=== PATIENT | male | born 1980 | race Caucasian/White ===

== ENCOUNTER 2024-12-28 10:22 | Emergency (ER) | payer SELFPAY ==
[2024-12-28 10:30] VITALS: BP 129/95; PULSE 78; O2SAT 98
[2024-12-28 10:33] VITALS: BP 134/91; PULSE 84; RESP 19; TEMP 36.8; O2SAT 96; BMI 27.1
--- NOTE | 2024-12-28 10:33 | CT_ITS ---
PROCEDURE INFORMATION: Exam: CT Abdomen And Pelvis With Contrast Exam date and time: 12/28/2024 10:58 AM Age: 44 years old Clinical indication: Constipation; Abdominal pain; Other: Llq; Additional info: Llq abdominal pain, constipation TECHNIQUE: Imaging protocol: Computed tomography of the abdomen and pelvis with contrast. Radiation optimization: All CT scans at this facility use at least one of these dose optimization techniques: automated exposure control; mA and/or kV adjustment per patient size (includes targeted exams where dose is matched to clinical indication); or iterative reconstruction. Contrast material: ISOVUE; Contrast volume: 75 ml; Contrast route: IV; COMPARISON: No relevant prior studies available. FINDINGS: Liver: Normal. No mass. Gallbladder and biliary ducts: Normal. No calcified stones. No ductal dilation. Pancreas: Normal. No ductal dilation. Spleen: Normal. No splenomegaly. Adrenal glands: Normal. No mass. Kidneys and ureters: Normal. No hydronephrosis. Stomach and bowel: Moderate diverticulosis with surrounding fat stranding and wall thickening involving the descending colon likely represents acute diverticulitis. No evidence of perforation or abscess. Appendix: No evidence of appendicitis. Intraperitoneal space: No evidence of free air in the abdomen. Vasculature: Unremarkable. No abdominal aortic aneurysm. Lymph nodes: Unremarkable. No enlarged lymph nodes. Urinary bladder: The urinary bladder is underdistended. Reproductive: Unremarkable as visualized. Bones/joints: Unremarkable. No acute fracture. Soft tissues: Unremarkable. IMPRESSION: Moderate diverticulosis with surrounding fat stranding and wall thickening involving the descending colon likely represents acute diverticulitis. No evidence of perforation or abscess. A colonoscopy is recommended to exclude malignancy after the acute episode has subsided.
--- NOTE | 2024-12-28 10:35 | ED_ITS ---
Discharge Plan Disposition Patient Disposition: Home, Self-Care Prescriptions Prescriptions: New amoxicillin-pot clavulanate 875-125 mg tablet 1 tab PO BID 5 Days Qty: 10 0RF Referrals Follow up/Referrals: Provider,Subhash Hire [Referring, Medical] - See instructions Activity Restrictions/Add. Instructions Additional Instructions/Restrictions: You were found to have diverticulitis. I am encouraging you to take MiraLAX to help soften your stools as well to drink plenty of fluids to help avoid constipation. You can take Tylenol and ibuprofen to help with pain. You are being prescribed a short course of Augmentin to help treat your diverticulitis. If you develop any new or worsening symptoms, or if you become concerned for your health for any reason, return to the emergency department for evaluation. Clinical Impressions Clinical Impression: Diverticulitis Instructions Patient Instructions: DI for Acute Abdominal Pain Print Language Print Language: Georgian Discharge ED Provider: Sundeep Freedman General Adult HPI General Chief complaint: Abdominal Pain Stated complaint: flu like symptoms ,abdomanl pain left sd Time Seen by Provider: 12/28/24 10:26 History of Present Illness HPI narrative: Robert Torres is a 44y male with no known past medical history who presents to the emergency department for complaints of subjective fevers and left lower quadrant abdominal pain. Patient states over the last 4 days, he has had subjective fevers that seem to worsen yesterday. Starting yesterday, while sitting at work, he developed dull, constant left lower quadrant abdominal pain. He does state that he has not had a bowel movement in 2 days, which is abnormal for him. He denies any diarrhea or bloody stools. He denies any dysuria, hematuria, penile discharge. He states that the pain is located in his left lower quadrant and radiates over to his periumbilical area. He denies any history of abdominal surgeries. He denies any nausea, vomiting, chest pain or shortness of breath. He took Advil last night but states that the pain kept him from sleeping well. Related Data Previous Rx's ?Medication ?Instructions ?Recorded amoxicillin 875 mg-potassium 1 tab PO BID 5 days #10 t abs 12/28/24 clavulanate 125 mg tablet Allergies Allergy/AdvReac Type Severity Reaction Status Date / Time No Known Allergies Allergy Verified 12/28/24 10:38 [facility] Disclaimer: The information contained in this section may have been updated after the patient was seen, as this information can be updated by other users. Social History Smoking Status: Current every day smoker alcohol intake: current current occupational status: employed Travel in the last 8 weeks?: None ROS Obtained: Yes Systems reviewed as appropriate & no additional complaints except as documented Physical Exam General General appearance: alert and in no apparent distress Head Head exam: atraumatic Eye Eye exam: Present normal appearance ENT ENT exam: Present normal external ear exam Neck Neck exam: Present full ROM Chest Chest inspection: Present symmetric chest wall rise Respiratory Respiratory exam: Present normal lung sounds bilaterally; Absent respiratory distress, wheezes or stridor Cardiovascular Cardiovascular exam: Present regular rate and normal rhythm Abdominal Exam Abdominal exam: Present soft and tenderness (LLQ); Absent distention or guarding exam: Present deferred Extremities Exam Extremities exam: Present normal inspection Back Exam Back exam: Present normal inspection Neurological Exam Neurological exam: Present alert and oriented X3 Psychiatric Psychiatric exam: Present normal affect Skin Skin exam: Present warm and dry Medical Decision Making Medical Records Screening: Per USPSTF and CDC recommendations, given the prevalence of disease in our region, it is our hospital?s policy to screen for HIV and viral Hepatitis for all patients aged 18 and over and those with ongoing risk factors. Higinio Inquiry Pt receiving controlled substance: No Vital Signs: 12/28/24 10:30 12/28/24 10:33 12/28/24 11:01 Temperature 98.3 F Temperature Source Oral Pulse Rate 78 77 Pulse Rate [Left] 84 Respiratory Rate 19 Blood Pressure 129/95 H 132/82 Blood Pressure [Right Arm] 134/91 H Blood Pressure Mean 104 Blood Pressure Mean [Right Arm] 105 Blood Pressure Source [Right Arm] Automatic Cuff Blood Pressure Position [Right Arm] Sitting 02 Sat by Pulse Oximetry 98 96 98 Oxygen Delivery Method Room Air Room Air 12/28/24 11:30 12/28/24 12:01 Temperature Temperature Source Pulse Rate 69 73 Pulse Rate [Left] Respiratory Rate 17 Blood Pressure 117/73 107/60 L Blood Pressure [Right Arm] Blood Pressure Mean 87 Blood Pressure Mean [Right Arm] Blood Pressure Source [Right Arm] Blood Pressure Position [Right Arm] 02 Sat by Pulse Oximetry 97 95 Oxygen Delivery Method Room Air Lab Data Lab Results 12/28/24 10:38: WBC 10.5, RBC 4.79, Hgb 14.9, Hct 41.9 L, MCV 87.5, MCH 31.1, M CHC 35.6 H, RDW 11.9, Plt Count 182, MPV 11.4 H, Neut % (Auto) 77.6, Lymph % (Auto) 9.6 L, [place] % (Auto) 11.8 H, Eos % (Auto) 0.7, Baso % (Auto) 0.1, Neut # (Auto) 8.1 H, Lymph # (Auto) 1.0, [place] # (Auto) 1.2 H, Eos # (Auto) 0.1, Baso # (Auto) 0.0, Sodium 139, Potassium 4.1, Chloride 106, Carbon Dioxide 24, Anion Gap 13.1, BUN 16, Creatinine 0.90, Estimated Creat Clear 128, Estimated GFR 91, Est GFR ( Amer) 110, Glucose 120 H, Calcium 9.3, Total Bilirubin 1.4 H, AST 30, ALT 27, Alkaline Phosphatase 96, Total Protein 7.9, Albumin 4.7, Globulin 3.2, Albumin/Globulin Ratio 1.5, Lipase 40, Urine Color Yellow, Urine Appearance Clear, Urine pH 6.0, Ur Specific [place] 1.025, Urine Protein Negative, Urine Glucose (UA) Negative, Urine Ketones Negative, Urine Blood Negative, Urine Nitrate Negative, Urine Bilirubin Negative, Urine Urobilinogen 0.2, Ur Leukocyte Esterase Negative, Urine RBC None, Urine WBC None, Urine Mucus 1+ 12/28/24 10:38 12/28/24 10:38 Orders (Tests/Meds): ED MEDICATIONS Discontinued Medications Generic Name Dose Route Start Last Admin Trade Name Jefry PRN Reason Stop Dose Admin Iopamidol 75 ml 12/28/24 10:55 12/28/24 10:57 Iopamidol-370 (76%);100ml Bottle IV 12/28/24 10:56 75 ml ONCE ONE Administration Ketorolac Tromethamine 15 mg 12/28/24 10:33 12/28/24 10:46 Ketorolac 15mg/Ml Vial IV 12/28/24 10:34 15 mg ONCE ONE Administration Sodium Chloride 10 ml 12/28/24 10:55 12/28/24 10:57 Sodium Chloride 0.9% 10ml Syr (Rad Only) IV 12/28/24 10:56 10 ml ONCE ONE Administration ORDERS Category Date Time Status CT abdomen pelvis w con Stat Cat Scan 12/28/24 10:33 Completed CBC w/Auto Diff [Complete Blood Count Auto Diff] Stat Lab 12/28/24 10:38 Completed CMP [Comprehensive Metabolic Panel] Stat Lab 12/28/24 10:38 Completed Lipase Stat Lab 12/28/24 10:38 Completed UA [Urinalysis and Microscopic] Stat Lab 12/28/24 10:38 Completed Medical Decision Narrative: Robert Torres is a 44y male with no known past medical history who presents to the emergency department for complaints of subjective fevers and left lower quadrant abdominal pain. Patient states over the last 4 days, he has had subjective fevers that seem to worsen yesterday. Starting yesterday, while sitting at work, he developed dull, constant left lower quadrant abdominal pain. He does state that he has not had a bowel movement in 2 days, which is abnormal for him. He denies any diarrhea or bloody stools. He denies any dysuria, hematuria, penile discharge. He states that the pain is located in his left lower quadrant and radiates over to his periumbilical area. He denies any history of abdominal surgeries. He denies any nausea, vomiting, chest pain or shortness of breath. He took Advil last night but states that the pain kept him from sleeping well. He denies any testicular pain or swelling. On arrival, patient is normotensive, afebrile, maintaining appropriate oxygen saturation on room air. Physical exam, as stated above, revealed an overall well-appearing male in no distress. GCS 15. He has localized tenderness in the left lower quadrant without guarding or rebound. Cardiopulmonary exam is unremarkable. No peritonitis on abdominal exam. Differential diagnosis includes, but is not limited to: Diverticulitis, constipation, small bowel obstruction, appendicitis, urinary tract infection, ureterolithiasis, among others. The most morbid conditions were considered and workup was based on these. Workup in the emergency department includes: CT abdomen pelvis with IV contrast, CBC, CMP, lipase, urinalysis. Patient was treated with 15 mg IV Toradol. He denies any nausea at this time. Lab work showed no leukocytosis, no anemia, platelets normal at 182. Electrolytes within normal limits. No ROSETTE. Glucose normal at 120. Bilirubin very mildly elevated at 1.4. Lipase normal at 40. Urinalysis without evidence of blood or infection. CT imaging interpreted by me personally prior to official radiology read. No acute intra-abdominal pathology. He does appear mildly to moderately constipated, however no evidence of obstruction, there does appear to be diverticulitis without abscess. See final radiology report for details. On reassessment, patient remains stable condition. Patient was instructed to continue hydrating well and to take MiraLAX to help with constipation. He will be prescribed a short course of Augmentin for his diverticulitis. Return precautions were given. All questions were answered. He demonstrated understanding and was in agreement this plan. He was then discharged from the emergency department in stable condition. Critical Care Critical Care Time Critical Care Time: No
[2024-12-28 10:42] LABS: Microscopic, Urine URINE MICROSCOPIC (MICROSCOPIC)
--- OUTSIDE RECORDS SUMMARY | 2024-12-28 10:42 | XMS_ITS | Encounter Summary ---
Author Organization [employer] ([place], [place], [place], [place]) Address [address] [place] [address] Care Team Providers Care Oil Field Worker Name Role Phone Unavailable Primary Care Provider Unavailabl e Encounter Details Date Type Department Care Team (Late st Contact Info) Description 09/24/2021 Transcribed Document [facility] [place] [facility] [address] ProviderLowell MD [facility] [place] [address] Social History Tobacco Use Types Packs/Day Years Used Date Smoking Tobacco: Never Assessed Sex and Gender Information Value Date Recorded Sex Assigned at Male 11/02/2021 11:21 AM CDT Legal Sex Male 11:21 AM CDT Gender Identity Male 11/02/2021 11:21 AM CDT Sexual Orientation Not on file documented as of this encounter Miscellaneous Notes * Cerner Conversion Note - Historical ProviderMD - 09/24/2021 1:58 PM CDT Electronically signed by [facility] Conversion Service Establishment Attendant Cerner at 08/21/2022 6:21 PM CDT documented in this encounter Plan of Treatment Not on file documented as of this encounter Visit Diagnoses Not on filedocumented in this encounter
--- OUTSIDE RECORDS SUMMARY | 2024-12-28 10:42 | XMS_ITS | Encounter Summary ---
Author Organization [employer] ([place], [place], [place], [place]) Address [address] [place] [address] Care Team Providers Care Procedure Rn Name Role Phone Unavailable Primary Care Provider Unavailabl e Encounter Details Date Type Department Care Team (Late st Contact Info) Description 09/24/2021 Transcribed Document [facility] [place] [facility] [place] [address] ProviderLowell MD [facility] [address] Social History Tobacco Use Types [...] Conversion Note - Historical ProviderMD - 09/24/2021 3:03 PM CDT CR Hand Min 3 Vws RT Ordered: 09/24/2021 Auth (Verified) Reason for Exam: Injury to proximal thumb 09/24/2021 14:54 09/24/2021 15:03 (CAMI KAYE PA) Reviewed by Provider, No further action required x1 documented in this encounter Plan of Treatment Not on file documented as of this encounter Visit Diagnoses Not on filedocumented in this encounter
--- OUTSIDE RECORDS SUMMARY | 2024-12-28 10:42 | XMS_ITS | Encounter Summary ---
Author Organization [employer] ([place], [place], [place], [place]) Address [address] [place] [address] Care Team Providers Care Anthropological Linguist Name Role Phone Unavailable Primary Care Provider Unavailabl e Encounter Details Date Type Department Care Team (Late st Contact Info) Description 07/12/2018 Transcribed Document [facility] [place] [facility] [place] [address] ProviderLowell MD [address] [place] [address] Social History Tobacco Use Types Packs/Day Years Used Date Smoking Tobacco: Never Assessed Sex and Gender Information Value Date Recorded Sex Assigned at Male 11/02/2021 11:21 AM CDT Legal Sex Male 11:21 AM CDT Gender Identity Male 11/02/2021 11:21 AM CDT Sexual Orientation Not on file documented as of this encounter Miscellaneous Notes * Cerner Conversion Note - Lowell ProviderMD - 07/12/2018 5:02 PM ELECTION WATCHER [facility] [address] [place] [address] PERSON INFORMATION Name ALAINA GOODSON Age 37 Years 1980 Sex Male Language Croatian PCP DANDY ABBASI PRIM Marital Status Single Med Service Emergency Medicine Acct# Arrival 07/12/2018 16:12:00 Visit Reason Knee pain-swelling; R KNEE PAIN Acuity 4 - Non - Urgent LOS 000 00:50 Depart Date: 07/12/18 04:58 PM Address: [address] [facility] [address] Comment: PROVIDER INFORMATION Provider Role Assigned Unassigned CAMI KAYE PA ED Physician 07/12/2018 16:13:34 Teodora Carmichael, ACCOUNT SUPPORT MANAGER Nurse 07/12/2018 16:18:01 DIAGNOSIS Right knee pain PHYS DOC NOTES VITALS INFORMATION Vital Sign Triage Latest Temp Source Oral Oral Temp Mode Fahrenheit Fahrenheit Temp Fahrenheit 97.4 Deg F 97.4 Deg F Temp Celsius 02 Sat 98 % 98 % Respiratory Rate 18 Breaths/Min 18 Breaths/Min Peripheral Pulse Rate 97 bpm 97 bpm Apical Heart Rate Blood Pressure 144 mmHg / 82 mmHg 144 mmHg / 82 mmHg Comment: MEDICAL INFORMATION Allergy Info: No Known Allergies Medications: Prescription Display etodolac (etodolac 400 mg oral tablet) 1 Tab, Oral, Tab, BID, # 20 Tab, 0 Refill(s) Comment: DISCHARGE INFORMATION Discharge Disposition: Home Discharge Location: PATIENT EDUCATION INFORMATION Instructions: Knee Pain, Adult Follow up: With: Address: When: JOSE DANIEL TRACEYWIL [facility] [place] [address] Business (8) Within 2 to 3 days Comments: Follow-up with orthopedist in the office for further assessment. Do not take other NSAIDs such as ibuprofen while taking etodolac. With: Address: When: [facility] Comments: Patient did not want to schedule an appointment with a primary care physician at this time. Patient was given a [employer] business card and advised he could contact us at [phone] when he was ready to establish a primary care physician. Comment: documented in this encounter Plan of Treatment Not on file documented as of this encounter Visit Diagnoses Not on filedocumented in this encounter
--- OUTSIDE RECORDS SUMMARY | 2024-12-28 10:42 | XMS_ITS | Encounter Summary ---
Author Organization [employer] ([place], [place], [place], [place]) Address [address] [place] [address] Care Team Providers Care Property Management Coordinator Name Role Phone Unavailable Primary Care Provider Unavailabl e Encounter Details Date Type Department Care Team (Late st Contact Info) Description 07/12/2018 Transcribed Document [facility] [place] [facility] [place] [address] ProviderLowell MD [address] [place] [address] Social History Tobacco Use Types Packs/Day Years Used Date Smoking Tobacco: Never Assessed Sex and Gender Information Value Date Recorded Sex Assigned at Male 11/02/2021 11:21 AM CDT Legal Sex Male 11:21 AM CDT Gender Identity Male 11/02/2021 11:21 AM CDT Sexual Orientation Not on file documented as of this encounter Miscellaneous Notes * Cerner Conversion Note - Lowell ProviderMD - 07/12/2018 4:12 PM ENGRAVER SET UP OPERATOR ED Triage Entered On: 07/12/2018 16:16 EST Performed On: 07/12/2018 16:14 EST by Teodora Carmichael RN ED Triage Across the Room Triage Date/Time : 07/12/2018 16:14 EST Chief Complaint : Right knee pain X 4 months. Intermittent worsening with throbbing. Teodora Carmichael RN - 07/12/2018 16:14 EST DCP GENERIC CODE Tracking Acuity : 4 - Non - Urgent Tracking Group : [facility] [place] Teodora Carmichael RN - 07/12/2018 16:14 EST Mode of Arrival : Ambulatory Transported to ED by : Walk in To Room Via : Ambulate Accompanied By : Unaccompanied ED Vital Signs : Document Height & Weight : Document ED Allergies : Document ED Reason for Visit : Document Special Events : Fast[employer] Patient Teodora Carmichael RN - 07/12/2018 16:14 EST Infectious Disease History Infectious Disease History : Chicken pox/Shingles Fever/Chills Last 48 Hours : No Travel To Regions with Travel Advisories : No Travel Outside [place] Within Last 30 Days : No Contact With Traveler to Advisory Region : No Tuberculosis Symptoms : None Teodora Carmichael RN - 07/12/2018 16:14 EST Vital Signs ED Temperature Source : Oral Temperature Mode : Fahrenheit Temperature, Fahrenheit : 97.4 Deg F ED Pain : Yes Clinical Temperature, C : 36.3 Deg C Oxygen Therapy Mode : Room air Peripheral Pulse Rate : 97 bpm Systolic Blood Pressure : 144 mmHg (HI) Diastolic Blood Pressure : 82 mmHg Oxygen Saturation : 98 % Teodora Cramichael RN - 07/12/2018 16:14 EST Allergy (As Of: 07/12/2018 16:16:42 EST) Allergies (Active) No Known Allergies Estimated Onset Date: Unspecified ; Created By: Contributor_system, HIST_Sampa; Reaction Status: Active ; Category: Drug ; Substance: No Known Allergies ; Type: Allergy ; Updated By: Contributor_system, [email or web address]_[email or web address]; Reviewed Date: 07/12/2018 16:16 EST Diagnosis Control ED (As Of: 07/12/2018 16:16:42 EST) Problems(Active) No Chronic Problems (Cerner :NKP ) Name of Problem: No Chronic Problems ; Recorder: Patito Ray; Code: NKP ; Last Updated: 03/13/2015 13:15 EST ; Life Cycle Date: 03/13/2015 ; Life Cycle Status: Active ; Vocabulary: Tamiko Diagnoses(Active) Knee pain-swelling Date: 07/12/2018 ; Diagnosis Type: Reason For Visit ; Confirmation: Confirmed ; Clinical Dx: Knee pain-swelling ; Classification: Medical ; Clinical Service: Emergency medicine ; Code: PNED ; Probability: 0 ; Diagnosis Code: [id number] ED Height and Weight Height Source : Stated Height Entry Format : [place] Height, Feet : 6 ft(Converted to: 183 cm, 72 Inch) Height, Inches : 0 Inch(Converted to: 0 ft 0 Inch, 0.00 cm) Clinical Height : 182.88 cm Weight Source, ED : Critical estimated dosing weight Weight Entry Format : [place] Weight, Pounds : 170 lb Clinical Dosing Weight : 77.27 kg Body Surface Area (BSA) : 1.99 m2 Body Mass Index : 23.1 kg/m2 [place] Body Weight (IBW) : 76.59 kg Teodora Carmichael RN - 07/12/2018 16:14 EST Pain Assessment Pain Assessment : Initial assessment Pain Scale Used : 0-10 Scale Location : Knee, right Teodora Carmichael RN - 07/12/2018 16:14 EST Pain Scale Intensity : 5 Teodora Carmichael RN - 07/12/2018 16:14 EST Image 4 - Images currently included in the form version of this document have not been included in the text rendition version of the form. documented in this encounter Plan of Treatment Not on file documented as of this encounter Visit Diagnoses Not on filedocumented in this encounter
--- OUTSIDE RECORDS SUMMARY | 2024-12-28 10:42 | XMS_ITS | Referral Summary ---
Author Organization [employer] ([place], [place], [place], [place]) Address [address] [place] [address] Care Team Providers Care Transportation Services Representative Name Role Phone Unavailable Primary Care Provider Unavailabl e Social History Tobacco Use Types Packs/Day Years Used Date Smoking Tobacco: Never Assessed Sex and Gender Information Value Date Recorded Sex Assigned at Male 11/02/2021 11:21 AM CDT Legal Sex Male 11:21 AM CDT Gender Identity Male 11/02/2021 11:21 AM CDT Sexual Orientation Not on file Plan of Treatment Not on file
--- OUTSIDE RECORDS SUMMARY | 2024-12-28 10:42 | XMS_ITS | Encounter Summary ---
Author Organization [employer] ([place], [place], [place], [place]) Address [address] [place] [address] Care Team Providers Care Rn Circulating Name Role Phone Unavailable Primary Care Provider Unavailabl e Encounter Details Date Type Department Care Team (Late st Contact Info) Description 09/24/2021 Transcribed Document [facility] [place] [facility] [place] [address] ProviderLowell MD [facility] [place] [address] Social History Tobacco Use Types Packs/Day Years Used Date Smoking Tobacco: Never Assessed Sex and Gender Information Value Date Recorded Sex Assigned at Male 11/02/2021 11:21 AM CDT Legal Sex Male 11:21 AM CDT Gender Identity Male 11/02/2021 11:21 AM CDT Sexual Orientation Not on file documented as of this encounter Miscellaneous Notes * Cerner Conversion Note - Lowell ProviderMD - 09/24/2021 12:58 PM CDT ED Assessment Entered On: 09/24/2021 13:27 EDT Performed On: 09/24/2021 13:26 EDT by Tayler Mcfadden RN ED Quick Look Assessment Level of Consciousness : Alert, Awake Affect/Behavior : Appropriate, Calm, Cooperative Skin Description : Normal for ethnicity Tayler Mcfadden RN - 09/24/2021 13:26 EDT ED General-Functional Assess Information Obtained From : Patient Preferred Communication Mode : Verbal Communication Barrier : None Primary Language : Guyanese Any Spiritual/Cultural Needs or Requests : No Currently in Unsafe Situation : No Tayler Mcfadden RN - 09/24/2021 13:26 EDT Social Habits Smoking Status : 5-9 cigarettes (between 1/4 to 1/2 pack)/day in last 30 days Smokeless Tobacco Status : Never Desires Tobacco Cessation Medication : No Reason for No Tobacco Cessation Medication : ED/procedural patient only Desires Tobacco Cessation Calc : 1 Tayler Mcfadden RN - 09/24/2021 13:26 EDT Social History (As Of: 09/24/2021 13:27:37 EDT) Tobacco: Use in Last 12 Months: Cigarettes. (Last Updated: 12/31/2013 15:03:00 EDT by CHRISTY DUARTE, RN) Alcohol: Use in Last 12 Months: No. (Last Updated: 12/31/2013 15:02:43 EDT by CHRISTY DUARTE, RN) Substance Abuse: Drug Use Hx: No. Use in Last 12 Months: No. Years of Use: Used marijuana in the past. (Last Updated: 02/13/2015 23:23:05 EDT by KENDRA BECK RN) Employment/School: Employed (Last Updated: 12/31/2013 15:02:50 EDT by CHRISTY DUARTE, BRITTNEY) Musculoskeletal Musculoskeletal Assessment WDL : WDL with exceptions Tayler Mcfadden RN - 09/24/2021 13:26 EDT Musculoskeletal Assessment Comment : Pt c/o right thumb pain, states jammed it yesterday. States injured same thumb one month ago hitting it in his truck and again yesterday. normal movement noted with pain. Tayler Mcfadden RN - 09/24/2021 13:28 EDT Electronically signed by Nicholas Cheng Conversion Automotive Production Worker Cerner at 08/21/2022 6:18 PM CDT documented in this encounter Plan of Treatment Not on file documented as of this encounter Visit Diagnoses Not on filedocumented in this encounter
--- OUTSIDE RECORDS SUMMARY | 2024-12-28 10:42 | XMS_ITS | Encounter Summary ---
Author Organization [employer] ([place], [place], [place], [place]) Address [address] [place] [address] Care Team Providers Care Product Safety Tester Name Role Phone Unavailable Primary Care Provider Unavailabl e Encounter Details Date Type Department Care Team (Late st Contact Info) Description 09/24/2021 Transcribed Document [facility] [place] [facility] [place] [address] ProviderLowell MD [facility] [place] [address] Social History Tobacco Use Types [...] ProviderMD - 09/24/2021 12:58 PM CDT ED Triage Entered On: 09/24/2021 13:07 EDT Performed On: 09/24/2021 13:02 EDT by Elda Waller RN ED Triage Across the Room Chief Complaint : Right thumb pain. Onset 1 month ago after jamming it. States jammed thumb again yesterday. + pulse. Triage Date/Time : 09/24/2021 13:02 EDT Elda Waller RN - 09/24/2021 13:02 EDT DCP GENERIC CODE Tracking Acuity : 4 - Non - Urgent Tracking Group : [facility] ED Elda Tirado RN - 09/24/2021 13:02 EDT Mode of Arrival : Ambulatory Transported to ED by : Private vehicle To Room Via : Ambulate Accompanied By : Unaccompanied ED Vital Signs : Document Height & Weight : Document ED Allergies : Document ED Reason for Visit : Document Elda Waller RN - 09/24/2021 13:02 EDT Infectious Disease History Does patient have symptoms of COVID-19? : No Tested for COVID19 in the past 14 days : No, Patient stated Does the Patient state known exposure to a COVID-19 positive case in the last 14 days? : No Patient Vaccinated for COVID-19 : Not vaccinated Does Patient want a COVID-19 Vaccine? : No Elda Waller RN - 09/24/2021 13:02 EDT Infectious Disease Risk Screening Grid Cough < 2 wks of unknown origin : NO Cough > 2 weeks : NO Blood in Sputum : NO Fever or self-reported Fever : NO Rash of unknown origin : NO Headache : NO Stiff neck : NO Night Sweats : NO Unexplained Weight Loss : NO Diarrhea (3 episode per day) : NO Elda Waller RN - 09/24/2021 13:02 EDT Physical contact outside [place] in the last 30 days : No Hospitalized in Foreign Country : No Infectious Disease History : Chicken pox/Shingles INF Disease TB Screening Calc : 0 INF Disease Recent Travel Calc : 0 Elda Waller RN - 09/24/2021 13:02 EDT Vital Signs ED Temperature Source : Oral Temperature Mode : Fahrenheit Temperature, Fahrenheit : 98.2 Deg F ED Pain : Yes Clinical Temperature, C : 36.8 Deg C Oxygen Therapy Mode : Room air Peripheral Pulse Rate : 97 bpm Respiratory Rate : 18 Breaths/Min Blood Pressure Location : Arm, left upper Blood Pressure Source : Non-Invasive BP Device Systolic Blood Pressure : 155 mmHg (HI) Diastolic Blood Pressure : 91 mmHg (HI) Oxygen Saturation : 99 % Elda Waller RN - 09/24/2021 13:02 EDT Allergy (As Of: 09/24/2021 13:07:19 EDT) Allergies (Active) No Known Allergies Estimated Onset Date: Unspecified ; Created By: CONTRIBUTOR_SYSTEM HIST_TAMIKO; Reaction Status: Active ; Category: Drug ; Substance: No Known Allergies ; Type: Allergy ; Updated By: CONTRIBUTOR_SYSTEM HIST_TAMIKO; Reviewed Date: 09/24/2021 13:04 EDT Diagnosis Control ED (As Of: 09/24/2021 13:07:19 EDT) Problems(Active) No Chronic Problems (Cerner :NKP ) Name of Problem: No Chronic Problems ; Recorder: Cory Patito; Code: NKP ; Last Updated: 03/13/2015 13:15 EST ; Life Cycle Date: 03/13/2015 ; Life Cycle Status: Active ; Vocabulary: Tamiko Diagnoses(Active) Thumb injury - Minor Date: 09/24/2021 ; Diagnosis Type: Reason For Visit ; Confirmation: Complaint of ; Clinical Dx: Thumb injury - Minor ; Classification: Medical ; Clinical Service: Emergency medicine ; Code: PNED ; Probability: 0 ; Diagnosis Code: [id number] ED Height and Weight Height Source : Stated Height Entry Format : [place] Height, Feet : 5 ft(Converted to: 152 cm, 60 Inch) Height, Inches : 11 Inch(Converted to: 0 ft 11 Inch, 27.94 cm) Clinical Height : 180.34 cm Weight Source, ED : Critical estimated dosing weight Weight Entry Format : [place] Weight, Pounds : 170 lb Clinical Dosing Weight : 77.27 kg Body Surface Area (BSA) : 1.97 m2 Body Mass Index : 23.8 kg/m2 [place] Body Weight (IBW) : 74.31 kg Elda Waller RN - 09/24/2021 13:02 EDT Pain Assessment Pain Assessment : Initial assessment Pain Scale Used : 0-10 Scale Location : Hand, right Elda Waller RN - 09/24/2021 13:02 EDT Pain Scale Intensity : 2 Elda Waller RN - 09/24/2021 13:02 EDT Image 4 - Images currently included in the form version of this document have not been included in the text rendition version of the form. documented in this encounter Plan of Treatment Not on file documented as of this encounter Visit Diagnoses Not on filedocumented in this encounter
--- OUTSIDE RECORDS SUMMARY | 2024-12-28 10:42 | XMS_ITS | Encounter Summary ---
Author Organization [employer] ([place], [place], [place], [place]) Address [address] [place] [address] Care Team Providers Care Air Sampling And Monitoring Name Role Phone Unavailable Primary Care Provider Unavailabl e Encounter Details Date Type Department Care Team (Late st Contact Info) Description 07/13/2018 Transcribed Document [facility] [place] [facility] [place] [address] ProviderLowell MD [facility] [place] [address] Social History Tobacco Use Types Packs/Day Years Used Date Smoking Tobacco: Never Assessed Sex and Gender Information Value Date Recorded Sex Assigned at Male 11/02/2021 11:21 AM CDT Legal Sex Male 11:21 AM CDT Gender Identity Male 11/02/2021 11:21 AM CDT Sexual Orientation Not on file documented as of this encounter Miscellaneous Notes * Cerner Conversion Note - Historical ProviderMD - 07/13/2018 3:18 PM ELECTRIC MOTOR ANALYST CR Knee 3 Vws RT Ordered: 07/12/2018 Auth (Verified) Reason for Exam: Medial pain 07/12/2018 16:58 07/13/2018 15:18 (CAMI KAYE PA) Reviewed by Provider, No further action required documented in this encounter Plan of Treatment Not on file documented as of this encounter Visit Diagnoses Not on filedocumented in this encounter
--- OUTSIDE RECORDS SUMMARY | 2024-12-28 10:42 | XMS_ITS | Encounter Summary ---
Author Organization [employer] ([place], [place], [place], [place]) Address [address] [place] [address] Care Team Providers Care Mexican Food Maker Name Role Phone Unavailable Primary Care Provider Unavailabl e Encounter Details Date Type Department Care Team (Late st Contact Info) Description 09/24/2021 Transcribed Document [facility] [place] [address] [place] [address] ProviderLowell MD [address] [place] [address] Social History Tobacco Use Types Packs/Day Years Used Date Smoking Tobacco: Never Assessed Sex and Gender Information Value Date Recorded Sex Assigned at Male 11/02/2021 11:21 AM CDT Legal Sex Male 11:21 AM CDT Gender Identity Male 11/02/2021 11:21 AM CDT Sexual Orientation Not on file documented as of this encounter Miscellaneous Notes * Cerner Conversion Note - Historical ProviderMD - 09/24/2021 12:58 PM CDT Broset Violence Assessment Entered On: 09/24/2021 13:08 EDT Performed On: 09/24/2021 13:08 EDT by Elda Waller RN Broset Violence Assessment Broset Violence Checklist of Symptoms : None Broset Violence Symptoms Subtotal : 0 Broset Violence Symptoms Indicator : Low risk (0) Elda Waller RN - 09/24/2021 13:08 EDT Electronically signed by Nicholas Cheng Conversion District Manager In Training Cerner at 08/21/2022 6:17 PM CDT documented in this encounter Plan of Treatment Not on file documented as of this encounter Visit Diagnoses Not on filedocumented in this encounter
--- OUTSIDE RECORDS SUMMARY | 2024-12-28 10:42 | XMS_ITS | Clinical Summary ---
Author Organization [employer] ([place], [place], [place], [place]) Address [address] [place] [address] Care Team Providers Care Salon Sales Consultant Name Role Phone Unavailable Primary Care Provider [...]
--- OUTSIDE RECORDS SUMMARY | 2024-12-28 10:42 | XMS_ITS | Encounter Summary ---
Author Organization [employer] ([place], [place], [place], [place]) Address [address] [place] [address] Care Team Providers Care Nurse Research Name Role Phone Unavailable Primary Care Provider Unavailabl e Encounter Details Date Type Department Care Team (Late st Contact Info) Description 09/24/2021 Transcribed Document [facility] [place] [facility] [place] [address] ProviderLowell MD [facility] [place] [address] Social History Tobacco Use Types [...] Conversion Note - Lowell ProviderMD - 09/24/2021 2:00 PM [facility]T [facility] [address] [place] [address] ALAINA GOODSON :1980 Visit Time:09/24/2021 Your Visit Summary Your Care Team Primary Provider: CAMI KAYE Secondary Provider: Your Diagnosis Sprain of hand, thumb, right Thumb injury - Minor Medical Information You may obtain a copy of your Emergency Department visit from Medical Records by calling the hospital phone number listed above and asking to be directed to the Medical Records Department. If you had special tests, such as EKG???s or X-rays, the interpretation of your tests given to you by the Emergency Department Physician is a preliminary report. Some fractures and illnesses fail to show up on preliminary tests. These will be reviewed again and we will call you if there are any new suggestions. If your symptoms continue notify your physician. After you leave, you should follow the instructions provided. What to do next Follow-Up Appointments Follow Up with MATT BAUTISTA When Within 1 week Comments Follow-up with orthopedist for further evaluation if not improving. Wear splint until follow-up. Where: [address] [facility] [address] [place] [address]- Business (1) Follow Up with NO PRIM DR ABBASI When Within 2 to 3 days Allergies No Known Allergies Immunizations This Visit No Immunizations Found Medications The home medications listed are only as accurate as the information you provided. Please continue taking all of your medications prescribed by your Primary Care Provider unless specifically told to change or discontinue the medication. Please direct any questions regarding your home medications to your Primary Care Provider. Take your medications faithfully. Do NOT skip medication. Do NOT stop taking medications without the direction of a physician. Carry a list of your medications with you at all times, and take this medication list with you to your first follow up visit. Report any side effects. Avoid herbal remedies unless discussed with your physician. As part of your treatment plan, your physician may have prescribed a limited course of a controlled substance. This medication may be given to help people with moderate or severe pain or for other medical conditions, but there are risks involved with treatment. Common side effects may include nausea, constipation, drowsiness, sweating, itching, dry mouth, and rash. More serious side effects may include cognitive and motor impairment, like problems with thinking, concentrating, alertness, and movement (e.g. slowed reflexes), and driving and operating heavy machinery can be dangerous. It is important for you to talk to your physician if you have these side effects or questions. These controlled substances can produce physical dependence and be habit-forming if taken for an extended period of time, which means that the body has gotten used to them and may experience withdrawal symptoms if they are abruptly stopped. Withdrawal symptoms can include runny nose, sweating, goose bumps, diarrhea, abdominal cramping, rapid heartbeat, difficulty sleeping, and nervousness. Please dispose of unused and medications per pharmacy guidance. Test Results Laboratory or Other Results This Visit (last charted value for your 09/24/2021 visit) No Laboratory or Other Results This Visit Education Materials Wrist Splint or Brace, Adult A wrist splint or brace is a device that prevents your wrist from moving. A splint supports your wrist like a cast, but is more flexible and can be adjusted more easily than a cast. A wrist brace provides support as well but is generally less rigid. A brace is given for terminal operations supervisor use while a splint is given for short term use. Wrist splints and braces can be removed or loosened. A splint or brace is held in place with an elastic band or straps. The supporting part of a splint or brace does not always completely surround your wrist. You may need a wrist splint or brace if you have hurt your wrist or if you have a condition that causes swelling. The wrist splint or brace may be worn: ??? To support your wrist. ??? To protect your injury. ??? To prevent further injury. ??? To prevent movement. ??? To reduce pain. ??? To help with healing. It is important to follow instructions from your health care provider about when to wear the splint or brace to make sure your wrist heals correctly. What are the risks? The most dangerous risk of wearing a splint or brace is reduced blood flow to your wrist or hand. This can happen if there is a lot of swelling or if the splint or brace is too tight. Reduced blood supply results in a condition called compartment syndrome and can cause permanent damage. Symptoms include: ??? Pain that is getting worse. ??? Tingling and numbness. ??? Changes in skin color, including paleness or a bluish color. ??? Cold fingers. Other problems can include: ??? Skin irritation that can cause itching, rash, skin sores, or skin infection. ??? Wrist stiffness. This can occur if you have worn a splint for a long time. ??? Wrist weakness. How to wear your wrist splint or brace Your wrist splint or brace should be tight enough to support your wrist without blocking your blood supply. How long you need to wear the splint or brace depends on the type of wrist problem you have. Your health care provider will instruct you about how to wear your wrist splint or brace and how long to wear it. ??? Wear the splint or brace as told by your health care provider. Remove it only as told by your health care provider. ??? Loosen the splint or brace if your fingers tingle, become numb, or turn cold and blue. ??? Do not stick anything inside the splint or brace to scratch your skin. Doing that increases your risk of infection. ??? Check the skin under the splint or brace for any redness or blisters every time you take off the splint. Tell your health care provider about any concerns. ??? Keep the splint clean. ??? If the splint or brace is not waterproof: ? Do not let it get wet. ? Cover it with a watertight covering when you take a bath or a shower. General recommendations ??? Do not put pressure on any part of the splint until it is fully hardened. This may take several hours. ??? Follow directions from your health care provider or the splint fire control mechanic for cleaning and caring for your splint or brace. It is important to clean it regularly. Make sure it is completely dry before putting in on. Follow these instructions at home: Managing pain, stiffness, and swelling ??? If directed, put ice on the injured area. ? If you a have a removable splint or brace, remove it as told by your health care provider. ? Put ice in a plastic bag. ? Place a towel between your skin and the bag. ? Leave the ice on for 20 minutes, 2???3 times a day. ? Remove the ice if your skin turns bright red. This is very important. If you cannot feel pain, heat, or cold, you have a greater risk of damage to the area. ??? Move your fingers often to avoid stiffness and to lessen swelling. ??? Raise the injured area above the level of your heart while you are sitting or lying down. Activity ??? Do exercises as told by your health care provider. ??? Ask your health care provider when it is safe to drive with a splint or brace on your wrist. ??? Return to your normal activities as told by your health care provider. Ask your health care provider what activities are safe for you. General instructions ??? Do not use the injured hand to do heavy work, such as lifting, pulling, or pushing. ??? Do not use any products that contain nicotine or tobacco, such as cigarettes, e-cigarettes, and chewing tobacco. These can delay bone healing. If you need help quitting, ask your health care provider. ??? Take yeip-[id number]-[id number] and prescription medicines only as told by your health care provider. ??? Keep all follow-up visits. This is important. Contact a health care provider if: ??? You have wrist pain or swelling that does not go away. ??? The skin around or under your splint becomes red, itchy, or moist. ??? You have chills or a fever. ??? Your splint or brace feels too tight or too loose. ??? Your splint or brace gets damaged. Get help right away if: ??? You have pain that is getting worse. ??? You have tingling and numbness. ??? You have changes in skin color, including paleness or a bluish color. ??? Your fingers are cold. Summary ??? A wrist splint or brace is a flexible device that supports your wrist and prevents it from moving. ??? Follow instructions from your health care provider about when to wear the splint or brace to make sure your wrist heals correctly. ??? Manage pain, stiffness, and swelling by using ice, moving your fingers often, and raising your wrist above the level of your heart. ??? The main risk of wearing a splint or brace is reduced blood supply to your wrist or hand. If your fingers tingle, become numb, or turn cold and blue, loosen the splint or brace and get help right away. This information is not intended to replace advice given to you by your health care provider. Make sure you discuss any questions you have with your health care provider. Document Revised: 08/27/2020 Document Reviewed: 08/27/2020 [employer] Patient Education ?? 2020 [employer] Thumb Sprain A thumb sprain is an injury to one of the bands of tissue (ligaments) that connect the bones in your thumb. The ligament may be stretched too much, or it may be torn. A tear can be either partial or complete. How bad, or severe, the sprain is depends on how much of the ligament was damaged or torn. What are the causes? A thumb sprain is often caused by a fall or an accident, such as when you hold your hands out to catch something or to protect yourself. What increases the risk? This injury is more likely to occur in people who play sports that involve: ??? A risk of falling, such as skiing. ??? Catching an object, such as basketball. What are the signs or symptoms? Symptoms of this condition include: ??? Not being able to move the thumb normally. ??? Swelling. ??? Tenderness. ??? Bruising. How is this diagnosed? This condition may be diagnosed based on: ??? Your symptoms and medical history. Your health care provider may ask about any recent injuries to your thumb. ??? A physical exam. ??? Imaging studies such as X-ray, ultrasound, or MRI. How is this treated? Treatment for this condition depends on how severe your sprain is. ??? If your ligament is overstretched or partially torn, treatment usually involves keeping your thumb in a fixed position (immobilization) for at least 4 to 6 weeks. Your health care provider will apply a bandage, cast, or splint to keep your thumb from moving until it heals. ??? If your ligament is fully torn, you may need surgery to reconnect the ligament to the bone. After surgery, you will need to wear a cast or splint on your thumb. Your health care provider may also recommend physical therapy to strengthen your thumb. Follow these instructions at home: If you have a splint or bandage: ??? Wear the splint or bandage as told by your health care provider. Remove it only as told by your health care provider. ??? Loosen the splint or bandage if your thumb or fingers tingle, become numb, or turn cold and blue. ??? Keep the splint or bandage clean and dry. If you have a cast: ??? Do not stick anything inside the cast to scratch your skin. Doing that increases your risk of infection. ??? Check the skin around the cast every day. Tell your health care provider about any concerns. ??? You may put lotion on dry skin around the edges of the cast. Do not put lotion on the skin underneath the cast. ??? Keep the cast clean and dry. Bathing ??? Do not take baths, swim, or use a hot tub until your health care provider approves. Ask your health care provider if you may take showers. You may only be allowed to take sponge baths. ??? If your splint, bandage, or cast is not waterproof: ? Do not let it get wet. ? Cover it with a watertight covering to protect it from water when you take a bath or shower. Managing pain, stiffness, and swelling ??? If directed, put ice on your thumb: ? If you have a removable splint, remove it as told by your health care provider. ? Put ice in a plastic bag. ? Place a towel between your skin and the bag, or between your cast and the bag. ? Leave the ice on for 20 minutes, 2???3 times a day. ??? Move your fingers often to avoid stiffness and to lessen swelling. ??? Raise (elevate) your hand above the level of your heart while you are sitting or lying down. Activity ??? Return to your normal activities as told by your health care provider. Ask your health care provider what activities are safe for you. ??? Do physical therapy exercises as directed. After your splint or cast is removed, your health care provider may recommend that you: ? Move your thumb in circles. ? Touch your thumb to your pinky finger. ? Do these exercises several times a day. ??? Ask your health care provider if you may use a hand retail warehouse associate to strengthen your muscles. ??? If your thumb feels stiff while you are exercising it, try doing the exercises while soaking your hand in warm water. Driving ??? Do not drive until your health care provider approves. ??? Donot drive or use heavy machinery while taking prescription pain medicine. General instructions ??? Do not put pressure on any part of the cast or splint until it is fully hardened, if applicable. This may take several hours. ??? Take onqp-pzg-oshklbd and prescription medicines only as told by your health care provider. ??? Do not use any products that contain nicotine or tobacco, such as cigarettes and e-cigarettes. These can delay healing. If you need help quitting, ask your health care provider. ??? Do not wear rings on your injured thumb. ??? Keep all follow-up visits as told by your health care provider. This is important. Contact a health care provider if you have: ??? Pain that gets worse or does not get better with medicine. ??? Bruising or swelling that gets worse. ??? Your cast or splint is damaged. Get help right away if: ??? Your thumb feels numb, tingles, turns cold, or turns blue, even after loosening your splint or bandage (if applicable). Summary ??? A thumb sprain is an injury to one of the bands of tissue (ligaments) that connect the bones in your thumb. ??? Thumb sprains are more likely to occur in people who play sports that involve a risk of falling or having to catch an object. ??? Treatment will depend on how severe the sprain is, but it will require keeping the thumb in a fixed position. It might require surgery. ??? Make sure you understand and follow all of your health care provider's instructions for home care. This information is not intended to replace advice given to you by your health care provider. Make sure you discuss any questions you have with your health care provider. Document Revised: 05/17/2018 Document Reviewed: 05/17/2018 [employer] Patient Education ?? 2020 [employer]. Emergency Awareness and Preventative Care STROKE is an EMERGENCY Every Minute Counts Act FAST and Check for these signs: FACE Does the face look uneven? ARM Does one arm drift down? SPEECH Does their speech sound strange? TIME Call at any sign of stroke Stroke Risk Factors Atrial Fibrillation (irregular heartbeat) Diabetes Family history of stroke Heart Disease Heavy alcohol use High Blood Pressure High Cholesterol Physical inactivity and obesity Smoking Cigarette Smoking The facts are clear, cigarette smoking will shorten your life. Smoking can cause many illnesses along the way. As a healthcare provider, we recommend that you stop smoking. Assistance with quitting is available by contacting 7-993-TRFE-NOW. This is a free resource providing counseling, support, and referral. Or you may contact your personal physician. National Suicide Prevention Lifeline: The National Suicide Prevention Lifeline is a national network of local crisis centers that provides free and confidential emotional support to people in suicidal crisis or emotional distress 24 hours a day, 7 days a week. Don't Wait! Stop a Heart Attack Before it Starts What is a heart attack? A heart attack is damage or to a part of the heart from severely decreased or lack of blood flow to the heart. Over time, arteries can become narrow from the buildup of fat and cholesterol, which is called plaque. The plaque can rupture causing a blood clot to form. When the blood clot forms, the artery can become severely narrowed or completely blocked, causing a heart attack. Heart attack is the leading cause of in the [place]. 85% of muscle damage occurs within the first 2 hours. Delay in the recognition of heart attack symptoms increases the chances of . Know the early symptoms of a heart attack: Nausea Feeling of fullness in chest Jaw Pain Pain that travels down one or both arms Fatigue/being tired Anxiety Back Pain Chest pressure, squeezing, or discomfort Shortness of breath Sweating, or a cold sweat Feeling of impending doom There are unusual signs of a heart attack, too! Women, the elderly, and diabetics may present with atypical symptoms: Fainting/dizziness Weakness Confusion Risk Factors for a Heart Attack Some heart disease risk factors, such as age and family history, cannot be changed. Others, like smoking and lack of exercise, can be changed. Smoking High Cholesterol High Blood Pressure Family History Obesity Age Gender (Males are at higher risk) Lack of Exercise Diabetes Diet Stress Excessive Alcohol Intake If you or someone you know is experiencing the signs and symptoms of a heart attack, DON???T DELAY. Call immediately and seek help. If someone collapses, perform CPR! Do not attempt to drive if you are having symptoms of heart attack. Hands-Only CPR Why Hands-Only CPR? Hands-Only CPR has been shown to be as effective as conventional CPR for cardiac arrests that occur outside of a hospital. Survival depends on immediately receiving CPR from someone nearby. How do you perform Hands-Only CPR? There are two easy steps: Call if you see a teen or adult collapse Push hard and fast in the center of the chest at a beat of 100 beats per minute. Save a life! 4 WAYS TO GET AHEAD OF SEPSIS SEPSIS is a MEDICAL EMERGENCY. Time matters! Infections put you and your family at risk for a life-threatening condition called sepsis. Sepsis is the body's extreme response to an infection. It is life-threatening, and without timely treatment, sepsis can rapidly lead to tissue damage, organ failure, and . Sepsis happens when an infection you already have-in your skin, lungs, urinary tract or somewhere else-triggers a chain reaction throughout your body. 1 PREVENT INFECTIONS Take good care of chronic conditions. Talk to your doctor about getting the recommended vaccines. 2 PRACTICE GOOD HYGIENE Wash your hands frequently. Keep cuts or open sores clean and covered until they are healed. 3 KNOW THE SYMPTOMS Confusion or disorientation Shortness of breath High heart rate Fever, shivering, or feeling very cold Extreme pain or discomfort Clammy or sweaty skin 4 ACT FAST Get medical care IMMEDIATELY if you suspect sepsis or if you have an infection that is not getting better or is getting worse. To learn more about sepsis and how to prevent infections, visit www.cdc.gov/sepsis. The examination and treatment you have received in the Emergency Department has been done to provide an appropriate evaluation and stabilizing treatment on an emergency basis only. Given the limited resources, it is not meant to be a substitute for complete medical care. The follow-up doctor you named will receive a copy of your records and all test reports. IT IS IMPORTANT THAT YOU SCHEDULE A FOLLOW-UP APPOINTMENT AND ARE RE-EVALUATED. You should report any new complaints, symptoms, or remaining problems at that time. IT IS IMPOSSIBLE FOR THE EMERGENCY DEPARTMENT TO RECOGNIZE AND TREAT ALL ELEMENTS OF INJURY OR ILLNESS IN A SINGLE VISIT. If you have been referred to a specialist physician, it means that we believe you may have a condition that requires the expertise of a specialist. These physicians work in partnership with the hospital and have agreed to see referred patients in their office for further evaluation. KEEP IN MIND THAT THE SPECIALIST HAS HIS/HER OWN OFFICE POLICIES WHICH MAY REQUIRE PROPER INSURANCE OR PAYMENT UP FRONT BEFORE THE SPECIALIST WILL SEE YOU. It is your responsibility to call the specialist physician to make an appointment. We do not have the ability to refer patients to specialists/physicians that work with specific insurance companies. Please be advised that all financial charges or billing practices are determined by that practice, not the hospital. If your insurance company requires that you see a specialist from their approved list, it is your responsibility to contact your insurance company to make those arrangements. It is also your responsibility to follow any other requirements of your insurance company necessary to obtain coverage for claims submitted. We will bill your insurance; however, you are responsible today for any co-pay amounts. You will receive a separate bill for any services you may have received including: emergency, radiology, or pathology physicians. Patient Name:ALAINA GOODSON I have received this information and was given the opportunity to ask questions. Patient/Food Mixer Name: Patient/Food Mixer Signature: Relationship to Patient: Clinician/Hospital Food Mixer Signature: Please Provide a Telephone Number Where You Can Be Reached: Is it Permissible To Leave a Message? Date: documented in this encounter Plan of Treatment Not on file documented as of this encounter Visit Diagnoses Not on filedocumented in this encounter
--- OUTSIDE RECORDS SUMMARY | 2024-12-28 10:42 | XMS_ITS | Encounter Summary ---
Author Organization [employer] ([place], [place], [place], [place]) Address [address] [place] [address] Care Team Providers Care Ladies' Locker Room Attendant Name Role Phone Unavailable Primary Care Provider Unavailabl e Encounter Details Date Type Department Care Team (Late st Contact Info) Description 09/24/2021 Transcribed Document [facility] [place] Family Medicine [facility] [place] [address] ProviderLowell MD [address] [place] [address] Social History Tobacco Use Types [...] Conversion Note - Lowell ProviderMD - 09/24/2021 1:15 PM CDT Patient: ALAINA GOODSON Age: 41 years Sex: Male : 1980 Associated Diagnoses: Sprain of hand, thumb, right Author: CAMI KAYE PA Basic Information Time seen: Immediately upon arrival. History source: Patient. Arrival mode: Private vehicle. History limitation: None. Additional information: Chief Complaint from Nursing Triage Note : Chief Complaint 09/24/2021 13:02 EDT Chief Complaint Right thumb pain. Onset 1 month ago after jamming it. States jammed thumb again yesterday. + pulse. . History of Present Illness The patient presents with right, finger pain. The onset was 4 weeks ago. The character of symptoms is pain and swelling. The patient's dominant hand is the right hand. Therapy today: none. Associated symptoms: denies numbness. Additional history: Patient states that he was getting into his truck and struck the tip of his thumb against the seat approximately 1 month ago. He has had pain and swelling to the base of the thumb since this occurred. He states that the condition was improving until yesterday when pushing a mower the thumb injury was exacerbated.. Review of Systems Constitutional symptoms: Negative except as documented in HPI. Skin symptoms: Negative except as documented in HPI. Musculoskeletal symptoms: Negative except as documented in HPI. Neurologic symptoms: Negative except as documented in HPI. Health Status Allergies: Allergic Reactions (Selected) No Known Allergies. Past Medical/ Family/ Social History Medical history Reviewed as documented in chart. Surgical history: None (SNOMED CT [id number]).. Family history: No family history items have been selected or recorded.. Social history: Social & Psychosocial Habits Alcohol 12/31/2013 Alcohol Use in Last Twelve Months No Employment/School 12/31/2013 Status: Employed Substance Abuse 02/13/2015 Recreational Drug Use History No Recreational Drug Use Last 12 Months No Years of Recreational Drug Use Used marijuana in the past Tobacco 12/31/2013 Tobacco Use Within Last Twelve Months Cigarettes . Problem list: Active Problems (1) No Chronic Problems . Physical Examination Vital Signs Vital Signs/Vital Measures 09/24/2021 13:02 EDT Blood Pressure Location Arm, left upper Blood Pressure Source Non-Invasive BP Device Systolic Blood Pressure 155 mmHg HI Diastolic Blood Pressure 91 mmHg HI Temperature Source Oral Temperature Mode Fahrenheit Temperature, Fahrenheit 98.2 Deg F Clinical Temperature, C 36.8 Deg C Peripheral Pulse Rate 97 bpm Respiratory Rate 18 Breaths/Min Oxygen Saturation 99 % Oxygen Therapy Mode Room air . Measurements 09/24/2021 13:02 EDT Height Source Stated Height Entry Format [place] Height/Length, CZECH (ft) 5 ft Height/Length CZECH 11 Inch CLINICALHEIGHT 180.34 cm [place] Body Weight 74.31 kg Weight Source, ED Critical estimated dosing weight Weight Entry Format [place] Weight Prydeinig lb 170 lb CLINICALWEIGHT 77.27 kg Body Surface Area (BSA) 1.97 m2 Body Mass Index 23.8 kg/m2 . Oxygen Saturation 09/24/2021 13:02 EDT Oxygen Saturation 99 % . General: Alert, no acute distress. Skin: Warm, dry. Cardiovascular: Capillary refill: Right, upper extremity, < 2 seconds. Respiratory: Respirations are non-labored. Musculoskeletal: Fingers/toes: Right, proximal, first, finger(s), tenderness, swelling, range of motion (normal, on flexion, on extension), Normal opposition, tenderness and swelling over MCP joint, no snuffbox tenderness, No laxity suggesting gamekeeper's thumb. Neurological: Alert and oriented to person, place, time, and situation. Psychiatric: Cooperative, appropriate mood & affect. Medical Decision Making Differential Diagnosis: Fracture, sprain. Rationale: Patient declines any prescribed medications, states that he will take ibuprofen per label instructions.. Documents reviewed: Emergency department nurses' notes. Orders Include Previous Orders (Selected) Inpatient Orders Ordered ED admissions advisor: Ordered (Exam Ordered) CR Hand RT: Completed Broset Violence Assessment: ED Adult Fall Risk Assessment: ED Adult Triage: ED C-SSRS: ED Clinical Reconciliation: . Hand/finger x-ray findings: No fracture. interpretation by Emergency Physician (reviewed by Dr Haas). Notes: Disposition discussed with Dr. Haas who agrees with plan of care.. Procedure Fracture/ Dislocation Procedure Confirmed: Patient, procedure, side, and site correct. Consent: Patient. Location: Right, Fingers:: first finger. Post-procedure exam: Circulation, motor, and sensory intact. Immobilization: Splint: thumb spica. Patient tolerated: Well. Complications: None. Performed by: Self. Performed by: Self, Post application evaluation. Impression and Plan Diagnosis Sprain of hand, thumb, right - Discharge, Emergency medicine, Medical Plan Condition: Stable. Disposition: Medically cleared, Discharged Admit/Transfer/Discharge: Discharge (Order): Start: 09/24/2021 13:57 EDT, Discharge to: Home . Patient was given the following educational materials: Thumb Sprain, Wrist Splint or Brace, Adult. Follow up with: DANDY ABBASI Within 2 to 3 days; MATT BAUTISTA Within 1 week Follow-up with orthopedist for further evaluation if not improving. Wear splint until follow-up.. Counseled: Patient, Regarding diagnosis, Regarding diagnostic results, Regarding treatment plan, Patient indicated understanding of instructions. Notes: I certify that the MLP/BUSINESS DEVELOPMENT SALES EXECUTIVE performed the services as delegated. I agree with the assessment, treatment plan and disposition of the patient as recorded by the MLP.. Addendum Teaching-Supervisory Addendum-Brief Notes: This visit was performed by both a physician and an APC. I performed all aspects of MDM as documented.. documented in this encounter Plan of Treatment Not on file documented as of this encounter Visit Diagnoses Not on filedocumented in this encounter
--- OUTSIDE RECORDS SUMMARY | 2024-12-28 10:42 | XMS_ITS | Encounter Summary ---
Author Organization [employer] ([place], [place], [place], [place]) Address [address] [place] [address] Care Team Providers Care Hunter Name Role Phone Unavailable Primary Care Provider Unavailabl e Encounter Details Date Type Department Care Team (Late st Contact Info) Description 07/12/2018 Transcribed Document [facility] [place] Family Medicine [facility] [place] [address] ProviderLowell MD [address] [place] [address] Social History Tobacco Use Types Packs/Day [...] - Lowell ProviderMD - 07/12/2018 5:02 PM SHIPPING COORDINATOR [facility] [address] [place] [address] Patient Information Name: ALAINA GOODSON Age: 37 Years Date of : 1980 Arrival Time: 07/12/2018 16:12:00 Diagnosis Right knee pain Primary Care Physician: DANDY ABBASI DR Provider Information Primary Provider: CAMI KAYE Secondary Provider: ALAINA GOODSON has been given the following list of patient education materials, prescriptions and follow-up instructions: Follow-up Instructions: With: Address: When: [address] [place] [address] Business (1) Within 2 to 3 days Comments: Follow-up with orthopedist in the office for further assessment. Do not take other NSAIDs such as ibuprofen while taking etodolac. With: Address: When: [facility] Comments: Patient did not want to schedule an appointment with a primary care physician at this time. Patient was given a [employer] business card and advised he could contact us at [phone] when he was ready to establish a primary care physician. Patient Education Materials: Knee Pain Knee pain is a very common symptom and can have many causes. Knee pain often goes away when you follow your health care provider's instructions for relieving pain and discomfort at home. However, knee pain can develop into a condition that needs treatment. Some conditions may include: ??? Arthritis caused by wear and tear (osteoarthritis). ??? Arthritis caused by swelling and irritation (rheumatoid arthritis orgout). ??? A cyst or growth in your knee. ??? An infection in your knee joint. ??? An injury that will not heal. ??? Damage, swelling, or irritation of the tissues that support your knee (torn ligaments or tendinitis). If your knee pain continues, additional tests may be ordered to diagnose your condition. Tests may include X-rays or other imaging studies of your knee. You may also need to have fluid removed from your knee. Treatment for ongoing knee pain depends on the cause, but treatment may include: ??? Medicines to relieve pain or swelling. ??? Steroid injections in your knee. ??? Physical therapy. ??? Surgery. HOME CARE INSTRUCTIONS ??? Take medicines only as directed by your health care provider. ??? Rest your knee and keep it raised (elevated) while you are resting. ??? Do notdo things that cause or worsen pain. ??? Avoid high-impact activities or exercises, such as running, jumping rope, or doing jumping jacks. ??? Apply ice to the knee area: ? Put ice in a plastic bag. ? Place a towel between your skin and the bag. ? Leave the ice on for 20 minutes, 2?3 times a day. ??? Ask your health care provider if you should wear an elastic knee support. ??? Keep a pillow under your knee when you sleep. ??? Lose weight if you are overweight. Extra weight can put pressure on your knee. ??? Do notuse any tobacco products, including cigarettes, chewing tobacco, or electronic cigarettes. If you need help quitting, ask your health care provider. Smoking may slow the healing of any bone and joint problems that you may have. SEEK MEDICAL CARE IF: ??? Your knee pain continues, changes, or gets worse. ??? You have a fever along with knee pain. ??? Your knee yola or locks up. ??? Your knee becomes more swollen. SEEK IMMEDIATE MEDICAL CARE IF: ??? Your knee joint feels hot to the touch. ??? You have chest pain or trouble breathing. This information is not intended to replace advice given to you by your health care provider. Make sure you discuss any questions you have with your health care provider. Document Released: 02/19/2008 Document Revised: 05/15/2015 Document Reviewed: 12/08/2014 [employer] Interactive Patient Education ? 2017 [employer]. Allergies: No Known Allergies Medication Information: Prescription Display etodolac (etodolac 400 mg oral tablet) 1 Tab, Oral, Tab, BID, # 20 Tab, 0 Refill(s) Laboratory or Other Results This Visit (last charted value for your 07/12/2018 visit) Diagnostic Radiology 07/12/18 16:43:58 CR Knee 3 Vws RT: CR Knee 3 Vws RT Medication Comment: Procedures: Laboratory Orders No laboratory orders were placed. Radiology Orders Name Status CR Knee 3 Vws RT Completed Cardiology Orders No cardiology orders were placed. This statement is to verify that ALAINA GOODSON was seen at [facility] on ,07/12/2018 17:02:11. This is not a work excuse, if a work excuse was needed it will be in addition to this statement as a separate form. IMPORTANT: The examination and treatment you have received [...] that requires the expertise of a specialist. KEEP IN MIND THAT THE SPECIALIST HAS HIS/HER OWN OFFICE POLICIES WHICH MAY REQUIRE PROPER INSURANCE OR PAYMENT UP FRONT BEFORE THE SPECIALIST WILL SEE YOU. It is your responsibility to call the specialist physician to make an appointment. We do not have the ability to identify specialists/physicians that work with specific insurance companies. [...] necessary to obtain coverage for claims submitted. If you had special tests, such as EKG???s or X-rays, the interpretation of your tests given to you by the Emergency Dept. Physician is a preliminary report. Some fractures and illnesses fail to show up on preliminary tests. We will review them again within 24-48 hours. We will call you if there are any new suggestions. If your symptoms continue notify your physician. After you leave, you should follow the instructions below. In all events, you may obtain a copy of your Emergency Department visit from Medical Records. Please call to be directed to this department. We will bill your insurance; however, you are responsible today for any co-pay amounts. You will receive a separate bill for any services you may have received including: emergency, radiology, or pathology physicians. Please be sure we have an accurate contact phone number and address, should we need to call you for any reason. CIGARETTE SMOKING: The facts are clear; cigarette smoking will shorten your life. Smoking can cause many illnesses along the way. As a healthcare provider, [facility] recommends that you stop smoking. Assistance with quitting is available by contacting 9-576-WWLU-NOW. This is a free resource providing counseling, support, and referral. Or you may contact your personal physician. As part of your treatment plan, [...] cramping, rapid heartbeat, difficulty sleeping, and nervousness. The home medications listed are only as accurate as the information you provided. Please continue taking all of your medications prescribed by your Primary Care Provider unless specifically told to change or discontinue the medication. Please direct any questions regarding your home medications to your Primary Care Provider. YOU ARE THE MOST IMPORTANT FACTOR IN YOUR RECOVERY. ?? Follow your instructions carefully ?? Take your medicines as prescribed ?? Most important, see a provider as discussed. If you do not have a provider, we can provide a list of clinics Confidential This message and accompanying documents are covered by Electronic Communications Privacy Act 18 U.S.C. ???Sections 5692-0390,?? and contain information intended for the specified individual(s) only. This information is confidential. If you are not the intended recipient or an agent responsible for delivering it to the intended recipient, you are hereby notified that you have received the document in error and that any review, dissemination, copying, or the taking of any action based on the contents of this information is strictly prohibited. If you have received this communication in error, please notify us immediately by email, and delete the original message. 4 WAYS TO GET AHEAD OF SEPSIS SEPSIS is a MEDICAL EMERGENCY. Time matters! Infections put you and your family at risk for a life-threatening condition called sepsis. Sepsis is the body???s extreme response to an infection. It is life-threatening, and without timely treatment, sepsis can rapidly lead to tissue damage, organ failure, and . Sepsis happens when an infection you already have???in your skin, lungs, urinary tract or somewhere else???triggers a chain reaction throughout your body. 1 [...] sepsis or if you have an infection that???s not getting better or is getting worse. To learn more about sepsis and how to prevent infections, visit www.cdc.gov/sepsis. STROKE is an EMERGENCY [employer] ACT F.A.S.T! FACE ?? Facial droop ?? Uneven smile ARM ?? Arm numbness ?? Arm weakness SPEECH ?? Slurred speech ?? Difficulty speaking or understanding TIME ?? Call 911 and get to the hospital immediately Have the ambulance go to the nearest stroke center. STROKE Risk Factors High blood pressure High cholesterol Heart Disease Diabetes Smoking Heavy alcohol use Physical inactivity and obesity Atrial Fibrillation (irregular heartbeat) Family history of stroke Reminder: Be sure to sign up for the [employer] patient portal, which gives you 28/11 access to your medical information ??? including these discharge instructions ??? using your computer, smartphone, or tablet. Just go to [employer] to get started. Questions? Call . Acknowledgment I hereby acknowledge receipt of these instructions and information above. I understand that I have received Emergency Treatment only which is not a substitute for complete medical care and acknowledge that all of my medical problems may not be known, identified, or treated prior to my release. I UNDERSTAND THE NEED TO ARRANGE FOLLOW-UP CARE WITH THE PHYSICIAN INDICATED. I UNDERSTAND THAT I SHOULD CONTACT MY PHYSICIAN IMMEDIATELY OR RETURN TO THE EMERGENCY DEPARTMENT IF MY CONDITION WORSENS, FAILS TO IMPROVE, OR NEW SYMPTOMS APPEAR. Vital Signs B/P PULSE RESP. RATE TEMPERATURE PULSE OX Signature of Emergency Provider Date / Time Signature of Emergency Nurse Date / Time Acknowledgment I hereby acknowledge receipt of these instructions and information above. I understand that I have received Emergency Treatment only which is not a substitute for complete medical care and acknowledge that all of my medical problems may not be known, identified, or treated prior to my release. I UNDERSTAND THE NEED TO ARRANGE FOLLOW-UP CARE WITH THE PHYSICIAN INDICATED. I UNDERSTAND THAT I SHOULD CONTACT MY PHYSICIAN IMMEDIATELY OR RETURN TO THE EMERGENCY DEPARTMENT IF MY CONDITION WORSENS, FAILS TO IMPROVE, OR NEW SYMPTOMS APPEAR. Signature of Patient / Responsible Person Date / Time Please provide a telephone number where you can be reached. The best time to call is between: It is permissible to leave a message if no answer: Yes____ No____ Nurse Providing Instructions: Emergency Physician: documented in this encounter Plan of Treatment Not on file documented as of this encounter Visit Diagnoses Not on filedocumented in this encounter
--- OUTSIDE RECORDS SUMMARY | 2024-12-28 10:42 | XMS_ITS | Encounter Summary ---
Author Organization [employer] ([place], [place], [place], [place]) Address [address] [place] [address] Care Team Providers Care Fugitive Detective Name Role Phone Unavailable Primary Care Provider Unavailabl e Encounter Details Date Type Department Care Team (Late st Contact Info) Description 07/12/2018 Transcribed Document [facility] [place] [facility] [place] [address] ProviderLowell MD [facility] [place] [address] Social History Tobacco Use Types [...] - Lowell ProviderMD - 07/12/2018 4:12 PM PACKER FUSER ED Assessment Entered On: 07/12/2018 16:17 EST Performed On: 07/12/2018 16:16 EST by Christy Carmichael RN ED Quick Look Assessment Level of Consciousness : Alert Affect/Behavior : Appropriate, Calm, Cooperative Orientation : Oriented x 4 Skin Temperature : Warm Skin Description : Dry Christy Carmichael RN - 07/12/2018 16:16 EST ED General-Functional Assess Information Obtained From : Patient Preferred Communication Mode : Verbal Communication Barrier : None Primary Language : Belizean Any Spiritual/Cultural Needs or Requests : No Currently in Unsafe Situation : No Christy Carmichael RN - 07/12/2018 16:16 EST Social Habits Smoking Status : 10 or more cigarettes (1/2 pack or more)/day in last 30 days Smokeless Tobacco Status : Never Desires Tobacco Cessation Medication : No Reason for No Tobacco Cessation Medication : ED/procedural patient only Desires Tobacco Cessation Calc : 1 Christy Carmichael RN - 07/12/2018 16:16 EST Social History (As Of: 07/12/2018 16:17:05 EST) Tobacco: Use in Last 12 Months: Cigarettes. (Last Updated: 12/31/2013 15:03:00 EDT by CHRISTY DUARTE, RN) Alcohol: Use in Last 12 Months: No. (Last Updated: 12/31/2013 15:02:43 EDT by CHRISTY DUARTE, BRITTNEY) Substance Abuse: Drug Use Hx: No. Use in Last 12 Months: No. Years of Use: Used marijuana in the past. (Last Updated: 02/13/2015 23:23:05 EDT by KENDRA BECK RN) Employment/School: Employed (Last Updated: 12/31/2013 15:02:50 EDT by CHRISTY DUARTE, BRITTNEY) Electronically signed by Nicholas Cheng Conversion Pediatric Physical Therapy Assistant Cerner at 08/21/2022 5:34 PM CDT documented in this encounter Plan of Treatment Not on file documented as of this encounter Visit Diagnoses Not on filedocumented in this encounter
--- OUTSIDE RECORDS SUMMARY | 2024-12-28 10:42 | XMS_ITS | Encounter Summary ---
Author Organization [employer] ([place], [place], [place], [place]) Address [address] [place] [address] Care Team Providers Care Head Refrigeration Engineer Name Role Phone Unavailable Primary Care Provider Unavailabl e Encounter Details Date Type Department Care Team (Late st Contact Info) Description 07/12/2018 Transcribed Document [facility] [place] Family Medicine [facility] [place] [address] ProviderLowell MD [facility] [place] [address] Social History Tobacco Use Types Packs/Day Years Used Date Smoking Tobacco: Never Assessed Sex and Gender Information Value Date Recorded Sex Assigned at Male 11/02/2021 11:21 AM CDT Legal Sex Male 11:21 AM CDT Gender Identity Male 11/02/2021 11:21 AM CDT Sexual Orientation Not on file documented as of this encounter Miscellaneous Notes * Cerner Conversion Note - Historical ProviderMD - 07/12/2018 5:00 PM G[facility]LEY [facility]OOK ED Discharge Entered On: 07/12/2018 17:01 EST Performed On: 07/12/2018 17:00 EST by Rosalva Rod Rn Discharge Process Patient Disposition : Discharge Personal Belongings With Patient : Yes Patient Education Completed : Yes Teaching Evaluation : Verbalizes understanding Rosalva Rod Rn - 07/12/2018 17:00 EST ED Discharge Discharge To : Home with ambulatory/outpatient follow-up Mode Of Departure : Ambulatory Prescriptions Given to Patient : Yes Number of Prescriptions Given : 1 Rosalva Rod Rn - 07/12/2018 17:00 EST Electronically signed by Nicholas Cheng Conversion Director Hydrogen Storage Engineering Cerner at 08/21/2022 5:47 PM CDT documented in this encounter Plan of Treatment Not on file documented as of this encounter Visit Diagnoses Not on filedocumented in this encounter
--- OUTSIDE RECORDS SUMMARY | 2024-12-28 10:42 | XMS_ITS | Encounter Summary ---
Author Organization [employer] ([place], [place], [place], [place]) Address [address] [place] [address] Care Team Providers Care Rework Machine Operator Name Role Phone Unavailable Primary Care Provider Unavailabl e Encounter Details Date Type Department Care Team (Late st Contact Info) Description 07/12/2018 Transcribed Document [facility] [place] Family Medicine [facility] [place] [address] ProviderLowell MD [facility] [place], [place] [id number] Social History Tobacco Use Types Packs/Day Years Used Date Smoking Tobacco: Never Assessed Sex and Gender Information Value Date Recorded Sex Assigned at Male 11/02/2021 11:21 AM CDT Legal Sex Male 11:21 AM CDT Gender Identity Male 11/02/2021 11:21 AM CDT Sexual Orientation Not on file documented as of this encounter Miscellaneous Notes * Cerner Conversion Note - Historical ProviderMD - 07/12/2018 4:55 PM LEGAL SUPPORT ANALYST Electronically signed by Prosper, [facility] Conversion Agricultural Equipment Salesperson Cerner at 08/21/2022 5:45 PM CDT documented in this encounter Plan of Treatment Not on file documented as of this encounter Visit Diagnoses Not on filedocumented in this encounter
--- OUTSIDE RECORDS SUMMARY | 2024-12-28 10:42 | XMS_ITS | Encounter Summary ---
Author Organization [employer] ([place], [place], [place], [place]) Address [address] [place] [address] Care Team Providers Care Rural Mail Contractor Name Role Phone Unavailable Primary Care Provider Unavailabl e Encounter Details Date Type Department Care Team (Late st Contact Info) Description 07/12/2018 Transcribed Document [facility] [place] [facility] [place] [address] ProviderLowell MD [address] [place] [address] Social History Tobacco Use Types [...] Conversion Note - Lowell ProviderMD - 07/12/2018 4:14 PM ART HANDLER Patient: ALAINA GOODSON Age: 37 years Sex: Male : 1980 Associated Diagnoses: Right knee pain Author: CAMI KAYE PA Basic Information Time seen: Immediately upon arrival. History source: Patient. Arrival mode: Private vehicle. History limitation: None. History of Present Illness The patient presents with knee pain. The onset was chronic. The course/duration of symptoms is fluctuating in intensity. Location: Right knee. The character of symptoms is pain. Associated symptoms: denies fever, denies chest pain and denies shortness of breath. Additional history: Patient complains of pain to the medial aspect of his right knee for the past 4 months. He does not recall any recent trauma. 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 He states that he had fluid extracted from his right knee as a teenager after injury while playing football.. Review of Systems Constitutional symptoms: Negative except as documented in HPI. Skin symptoms: Negative except as documented in HPI. Respiratory symptoms: Negative except as documented in HPI. Cardiovascular symptoms: Negative except as documented in HPI. Musculoskeletal symptoms: Negative except as documented in HPI. Neurologic symptoms: Negative except as documented in HPI. Health Status Allergies: Allergic Reactions (Selected) No Known Allergies. Past Medical/ Family/ Social History Medical history Reviewed as documented in chart. Surgical history: None (SNOMED CT [id number]).. Family history: No family history items have [...] Problems . Physical Examination Vital Signs Vital Measurements 07/12/2018 16:14 EST Temperature Source Oral Temperature Mode Fahrenheit Temperature, Fahrenheit 97.4 Deg F Clinical Temperature, C 36.3 Deg C Peripheral Pulse Rate 97 bpm Systolic Blood Pressure 144 mmHg HI Diastolic Blood Pressure 82 mmHg Oxygen Saturation 98 % Oxygen Therapy Mode Room air . General: Alert, no acute distress. Skin: Warm, dry, intact. Cardiovascular: Regular rate and rhythm, No murmur, Arterial pulses: Right, posterior tibial, dorsalis pedis, normal. Respiratory: Respirations are non-labored. Musculoskeletal: Homans sign negative right lower extremity, Lower extremity: Right, medial, knee, tenderness, range of motion normal, No laxity with anterior/posterior drawer test, no swelling. Neurological: Alert and oriented to person, place, time, and situation. Psychiatric: Cooperative, appropriate mood & affect. Medical Decision Making Differential Diagnosis: Sprain, internal knee injury. Rationale: Patient states that he has a brace which he has been wearing. He is not wearing it today in the ED. I advised use of the brace while working.. Documents reviewed: Emergency department nurses' notes. Orders Include Previous Orders (Selected) Inpatient Orders Ordered ED FastER Patient: Ordered (Exam Ordered) CR Knee RT: Completed ED Adult Fall Risk Assessment: ED Adult Triage: ED Clinical Reconciliation: ED snowmaker: . Knee x-ray findings No fracture, interpretation by Emergency Physician (No effusion, reviewed by Dr. Humphreys). Impression and Plan Diagnosis Right knee pain - Discharge, Emergency medicine, Medical Plan Condition: Stable. Disposition: Medically cleared, Discharged Admit/Transfer/Discharge: Discharge (Order): Start: 07/12/2018 16:54 EST, Discharge to: Home. Prescriptions: Prescription [facility]: etodolac 400 mg oral tablet (Prescribe): 1 Tab, Oral, BID, for 10 Day(s), 20 Tab, 0 Refill(s). Patient was given the following educational materials: Knee Pain, Adult. [facility]: [facility] Patient did not want to schedule an appointment with a primary care physician at this time. Patient was given a [employer] business card and advised he could contact us at [phone] when he was ready to establish a primary care physician.; JOSE DANIEL MCCLOUD Within 2 to 3 days Follow-up with orthopedist in the office for further assessment. Do not take other NSAIDs such as ibuprofen while taking etodolac.. Counseled: Patient, Regarding diagnosis, Regarding diagnostic results, Regarding treatment plan, Regarding prescription, Patient indicated understanding of instructions. Notes: I certify that the MLP/ROAD GANG SUPERVISOR performed the services as delegated. I agree with the assessment, treatment plan and disposition of the patient as recorded by the MLP.. documented in this encounter Plan of Treatment Not on file documented as of this encounter Visit Diagnoses Not on filedocumented in this encounter
--- OUTSIDE RECORDS SUMMARY | 2024-12-28 10:42 | XMS_ITS | Encounter Summary ---
Author Organization [employer] ([place], [place], [place], [place]) Address [address] [place] [address] Care Team Providers Care Instrumental Musician Name Role Phone Unavailable Primary Care Provider Unavailabl e Encounter Details Date Type Department Care Team (Late st Contact Info) Description 09/24/2021 Transcribed Document [facility] [place] [facility] [place] [address] ProviderLowell MD [facility] [place] [address] Social History Tobacco Use Types [...] Conversion Note - Lowell ProviderMD - 09/24/2021 2:04 PM CDT ED Discharge Entered On: 09/24/2021 14:17 EDT Performed On: 09/24/2021 14:04 EDT by Tayler Mcfadden box maker wood Process Patient Disposition : Discharge Personal Belongings With Patient : Yes Patient Education Completed : Yes Teaching Evaluation : Verbalizes understanding IV Discontinued : Not applicable Nursing Documentation Completed : Yes Tayler Mcfadden RN - 09/24/2021 14:16 EDT ED Discharge Discharge To : Home with ambulatory/outpatient follow-up Mode Of Departure : Ambulatory, Private vehicle Accompanied By : Unaccompanied Discharge Instructions Reviewed With, Opportunity For Questions Given : Patient Prescriptions Given to Patient : No Tayler Mcfadden RN - 09/24/2021 14:16 EDT Electronically signed by [facility] Conversion Liquid Hydrogen Plant Operator Cerner at 08/21/2022 6:22 PM CDT documented in this encounter Plan of Treatment Not on file documented as of this encounter Visit Diagnoses Not on filedocumented in this encounter
[2024-12-28] MEDS: KETOROLAC 15MG/ML VIAL 15 MG IV (10:46)
[2024-12-28 10:51] LABS: Hematocrit 41.9 % (42.0-52.0); Hemoglobin 14.9 g/dL (14.1-18.0); Immature Granulocytes % 0.2 %; Mean Corpuscular HGB Conc 35.6 g/dL (31.8-35.4); Mean Corpuscular Hemoglobin 31.1 pg (27.0-31.2); Mean Corpuscular Volume 87.5 fl (80-94); Nucleated Red Blood Cells % 0 %; Platelet Count 182 K/mm3 (142-424); Red Blood Count 4.79 M/mm3 (4.60-6.20); Red Cell Distribution Width-SD 38.3 fL; White Blood Count 10.5 K/mm3 (4.8-10.8)
[2024-12-28 10:53] LABS: Bilirubin,Urine Negative (Negative); Color,Urine YELLOW (Yellow); Glucose,Urine (UA) Negative (Negative); Ketones,Urine Negative (Negative); Leukocyte Esterase,Urine Negative (Negative); PH,Urine 6.0 (5.0-8.5); Protein,Urine Negative (Negative); Specific Gravity, Urine 1.025 (1.005-1.030); Urobilinogen,Urine 0.2 EU/dl (0.2)
[2024-12-28] MEDS: IOPAMIDOL-370 (76%);100ML BOTTLE 75 ML IV (10:57)
[2024-12-28] MEDS: SODIUM CHLORIDE 0.9% 10ML SYR (RAD ONLY) 10 ML IV (10:57)
[2024-12-28 10:59] LABS: Albumin Level 4.7 g/dl (3.5-5.0); Chloride 106 mmol/L (98-107); Potassium 4.1 mmoL/L (3.5-5.1); Sodium 139 mmol/L (136-145)
[2024-12-28 11:01] VITALS: BP 132/82; PULSE 77; O2SAT 98
[2024-12-28 11:01] LABS: Alanine Aminotransferase 27 U/L (12-78); Albumin/Globulin Ratio 1.5 (1.1-1.8); Alkaline Phosphatase 96 U/L (38-126); Anion Gap 13.1 mEq/L (5-15); Aspartate Amino Transferase 30 U/L (17-59); Bilirubin,Total 1.4 mg/dl (0.2-1.3); Blood Urea Nitrogen 16 mg/dl (9-20); Carbon Dioxide 24 mmol/L (22.0-30.0); Creatinine Clearance Estimated 128 mL/min (50-200); Creatinine,Serum 0.90 mg/dl (0.66-1.25); Estimated Glomerular Filt Rate 91 ml/min (>60); GFR (African American) 110 ML/MIN (>60); Globulin 3.2 g/dL (1.3-3.2); Total Protein,Serum 7.9 g/dl (6.3-8.2)
[2024-12-28 11:02] LABS: Calcium 9.3 mg/dl (8.4-10.2); Glucose 120 mg/dl (74-100); Lipase 40 U/L (23-300); Mucus,Urine 1+ /lpf
[2024-12-28 11:30] VITALS: BP 117/73; PULSE 69; RESP 17; O2SAT 97
[2024-12-28 12:01] VITALS: BP 107/60; PULSE 73; O2SAT 95
[2024-12-28 12:20] VITALS: BP 129/74; PULSE 88; RESP 19; TEMP 37.1; O2SAT 98
== END 2024-12-28 12:23 | disposition home or self-care (01) ==
PROVIDERS: Emergency Provider Student in an Organized Health Care Education/Training Program
DX: R10.32 Left lower quadrant pain (principal); K57.92 Diverticulitis of intestine, part unspecified, without perforation or abscess without bleeding; F17.200 Nicotine dependence, unspecified, uncomplicated
CPT/HCPCS: 74177; 80053; 81001; 83690; 85025; 96374; 99284; 99285; J1885; Q9967